=== PATIENT | female | born 1965 | race Caucasian/White ===

== ENCOUNTER 2016-07-02 13:39 | Day surgery (SDC) | payer OTHER ==
[~2016-07-02 13:39] MED LIST: CIMETIDINE PO; CRYSELLE-28 TA1 EACH PO; CYCLOBENZAPRINE10 M1 PO; FISH OIL 1,0001 EA10 PO; IBUPROFEN600 M1 PO; MULTIVITAMINS1 EAC7 PO; PROBIOTIC1 EA10 PO; RHINOCORT ALL8.43 ML; SUPER B COMPLE150 M1 PO; SYMBICORT 160-1 PUFF INH; SYNTHROID75 MC1 PO; TESTOSTERONE GEL TOP; XOPENEX HFA15 G1 IH; ZYRTEC1010 PO; [UNRECOGNIZED DRUG - OTHER]
== END 2016-07-02 16:00 ==
LOC: ENDOS 13:39 → SHSA 13:41 → ENDOS 14:48
PROC: 0DB28ZX Excision of Middle Esophagus, Via Natural or Artificial Opening Endoscopic, Diagnostic (ICD-10-PCS; principal; 2016-07-02)
PROC: 0DB68ZX Excision of Stomach, Via Natural or Artificial Opening Endoscopic, Diagnostic (ICD-10-PCS; 2016-07-02)
PROC: 0D738ZZ Dilation of Lower Esophagus, Via Natural or Artificial Opening Endoscopic (ICD-10-PCS; 2016-07-02)
DX: R13.10 Dysphagia, unspecified (principal); K29.50 Unspecified chronic gastritis without bleeding; K20.0 Eosinophilic esophagitis; M19.90 Unspecified osteoarthritis, unspecified site; M41.9 Scoliosis, unspecified; E03.9 Hypothyroidism, unspecified; J45.909 Unspecified asthma, uncomplicated; G47.30 Sleep apnea, unspecified; Z79.899 Other long term (current) drug therapy; Z88.1 Allergy status to other antibiotic agents; Z88.2 Allergy status to sulfonamides; Z88.8 Allergy status to other drugs, medicaments and biological substances; Z87.891 Personal history of nicotine dependence; Z90.49 Acquired absence of other specified parts of digestive tract; Z98.890 Other specified postprocedural states